=== PATIENT | male | born 1975 | race Caucasian/White ===

== ENCOUNTER 2016-04-17 10:09 | Emergency (ER) | payer OTHER ==
[2016-04-17 10:28] VITALS: BP 106/60; PULSE 88; TEMP 97.5; BMI 23.0
--- NOTE | 2016-04-17 10:57 | PDOC ---
History of Present Illness <Brett Ly - Last Filed: 04/17/16 10:55> - General History Source: Patient Exam Limitations: No Limitations - History of Present Illness Initial Comments: 04/17/16 11:00 The patient is a 40 year old male with no pmhx who presents to the ED with left lower back pain. Patient reports taking advil to alleviate the pain. He denies radiation of the pain, no testicular pain, no dysuria or hematuria. He denies any fever, nausea, or vomiting. <Rosanne Garcia - Last Filed: 04/17/16 11:01> - General Chief Complaint: Pain Stated Complaint: LOWER BACK PAIN Time Seen by Provider: 04/17/16 10:36 Past History - Past Medical History Diabetes: Yes HTN: Yes Suicide Attempt (Hx): No Other medical history: none - Surgical History Abdominal Surgery: Yes (vertical sleeve gastrectomy) - Immunization History Td Vaccination: No TDAP Vaccination: No Immunization Up to Date: Yes - Psycho/Social/Smoking Cessation Hx Anxiety: No Suicidal Ideation: No Smoking Status: No Smoking History: Never smoked Years of Tobacco Use: 0 Have you smoked in the past 12 months: No Number of Cigarettes Smoked Daily: 0 Cigars Per Day: 0 Information on smoking cessation initiated: No Hx Alcohol Use: No Drug/Substance Use Hx: No Substance Use Type: None <Brett Ly - Last Filed: 04/17/16 10:55> <Rosanne Garcia - Last Filed: 04/17/16 11:01> - Past Medical History Allergies/Adverse Reactions: Allergies Allergy/AdvReac Type Severity Reaction Status Date / Time No Known Allergies Allergy Verified 04/17/16 10:22 Home Medications: Ambulatory Orders Unobtainable [Unobtainable] 03/07/14 Review of Systems - Review of Systems Able to Perform ROS?: Yes Comments:: 04/17/16 11:01 General: Absent: fever, chills : Absent: dysuria, hematuria, testicular pain GI: Absent: nausea, vomiting Musculoskeletal: left lower back pain <Rosanne Garcia - Last Filed: 04/17/16 11:01> *Physical Exam - Vital Signs Last Vital Signs Temp Pulse Resp BP Pulse Ox 97.5 F L 88 18 106/60 100 04/17/16 10:24 04/17/16 10:24 04/17/16 10:24 04/17/16 10:24 04/17/16 10:24 - Physical Exam General Appearance: Yes: Nourished, Appropriately Dressed. No: Apparent Distress Neck: positive: Supple. negative: Tender Respiratory/Chest: positive: Lungs Clear, Normal Breath Sounds. negative: Chest Tender, Respiratory Distress Cardiovascular: positive: Regular Rhythm Gastrointestinal/Abdominal: positive: Flat, Soft. negative: Tender Musculoskeletal: positive: Normal Inspection, Other (TENDER AT LT PARASPINAL MUSCLES. NO ECCHYMOSIS. PAIN WHEN ENGAGING SAID MUSCLES). negative: CVA Tenderness Extremity: positive: Normal Capillary Refill, Normal Range of Motion Integumentary: positive: Normal Color. negative: Rash, Ecchymosis, Bruising Neurologic: positive: Fully Oriented, Normal Mood/Affect, Normal Response, Motor Strength 5/5 <Brett Ly - Last Filed: 04/17/16 10:55> - Vital Signs Last Vital Signs Temp Pulse Resp BP Pulse Ox 97.5 F L 88 18 106/60 100 04/17/16 10:24 04/17/16 10:24 04/17/16 10:24 04/17/16 10:24 04/17/16 10:24 <Rosanne Garcia - Last Filed: 04/17/16 11:01> *DC/Admit/Observation/Transfer <Brett Ly - Last Filed: 04/17/16 10:55> - Attestations Scribe Attestion: 04/17/16 11:01 Documentation prepared by NATALIE Buckley, acting as durable medical equipment repairer for Brett Ly MD/DO. <Rosanne Garcia - Last Filed: 04/17/16 11:01> Diagnosis at time of Disposition: Muscle pain - Discharge Dispostion Disposition: HOME Condition at time of disposition: Good - Referrals Referrals: Isidra Falk MD [Primary Care Provider] - Call tomorrow - Patient Instructions Additional Instructions: IBUPROFEN 800 MG 3 TIMES A DAY FOR 3 DAYS SEE YOUR DOCTOR THIS WEEK RETURN IF WORSENING OR NEW SYMPTOMS
== END 2016-04-17 11:25 | disposition home or self-care (01) ==
LOC: JER 10:09
DX: M54.5 Low back pain (principal); E11.9 Type 2 diabetes mellitus without complications; I10 Essential (primary) hypertension; Z98.84 Bariatric surgery status
CPT/HCPCS: 99282-25

== ENCOUNTER 2017-09-27 13:10 | Emergency (ER) | payer OTHER ==
[2017-09-27 13:14] VITALS: BP 114/65; PULSE 88; TEMP 98.2; BMI 24.2
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
== END 2017-09-27 14:41 | disposition home or self-care (01) ==
LOC: JERFT 13:10
DX: S63.8X2A Sprain of other part of left wrist and hand, initial encounter (principal); V43.52XA Car driver injured in collision with other type car in traffic accident, initial encounter; Y93.89 Activity, other specified; Y92.410 Unspecified street and highway as the place of occurrence of the external cause; M79.1 Myalgia; I10 Essential (primary) hypertension; E11.9 Type 2 diabetes mellitus without complications
CPT/HCPCS: 73130-TC-LR-FY; 99281-25

== ENCOUNTER 2018-08-01 04:45 | Inpatient (IN) | payer OTHER ==
[2018-08-01] MEDS ORDERED: MIDAZOLAM HCL 2 MG/2 ML SINGLE DOSE VIAL ONE (07:12)
[2018-08-01] MEDS ORDERED: SUCCINYLCHOLINE CHLORIDE 200 MG/10 ML SYRINGE ONE (07:12)
[2018-08-01] MEDS ORDERED: PROPOFOL 20 ML ONE (07:12)
[2018-08-01] MEDS ORDERED: ROCURONIUM BROMIDE 50 MG/5 ML VIAL ONE (07:12)
[2018-08-01] MEDS ORDERED: fentaNYL CITRATE 250 MCG/5 ML VIAL ONE (07:12)
[2018-08-30 18:09] VITALS: BMI 25.1
[2018-09-03] MEDS ORDERED: fentaNYL CITRATE 250 MCG/5 ML VIAL ONE (07:00)
[2018-09-03] MEDS ORDERED: ROCURONIUM BROMIDE 50 MG/5 ML SYRINGE ONE (07:00)
[2018-09-03] MEDS ORDERED: PROPOFOL 20 ML ONE (07:00)
[2018-09-03] MEDS ORDERED: ONDANSETRON 4 MG/2 ML VIAL ONE (07:01)
[2018-09-03] MEDS ORDERED: LIDOCAINE HCL/PF 2% SDV 5ML VIAL ONE (07:01)
[2018-09-03] MEDS ORDERED: DEXAMETHASONE SOD PHOSPHATE 4 MG/1 ML VIAL ONE (07:01)
[2018-09-03] MEDS ORDERED: DESFLURANE GAS 240 ML BOTTLE IH ONE (07:10)
[2018-09-03] MEDS ORDERED: THROMBIN (BOVINE) 20,000 UNIT VIAL TP ONE (07:11)
[2018-09-03] MEDS ORDERED: LIDOCAINE 1%-EPI 1:100,000 30 ML MDV IJ ONE (07:11)
[2018-09-03] MEDS ORDERED: GENTAMICIN SO4 80 MG/2 ML VIAL ONE (07:11)
[2018-09-03] MEDS ORDERED: VANCOMYCIN 1,000 MG VIAL (RESTRICTED TO ID ONLY) IVPB ONE (08:00)
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
[2018-09-03] MEDS ORDERED: MIDAZOLAM HCL 2 MG/2 ML SINGLE DOSE VIAL ONE ×2 (08:27→08:33)
[2018-09-03] MEDS ORDERED: ceFAZolin SODIUM 1 GM VIAL IVPB ONE (08:45)
[2018-09-03] MEDS ORDERED: VANCOMYCIN 1,000 MG VIAL (RESTRICTED TO ID ONLY) ONE (08:51)
[2018-09-03] MEDS ORDERED: LIDOCAINE 1%/EPI 1:100000 (50 ML MULTI DOSE VIAL) INF ONE (08:54)
[2018-09-03] MEDS ORDERED: NEOSTIGMINE METHYLSULFATE 0.5 MG/1 ML - 10 ML MDV ONE (09:54)
[2018-09-03] MEDS ORDERED: GLYCOPYRROLATE 0.2 MG/1 ML VIAL ONE (09:54)
[2018-09-03] MEDS ORDERED: ONDANSETRON 4 MG/2 ML VIAL IVPUSH PRN (10:22)
[2018-09-03] MEDS ORDERED: oxyCODONE HCL 5 MG TABLET PO PRN (10:22)
[2018-09-03] MEDS ORDERED: diphenhydrAMINE HCL 25 MG CAPSULE (FP) PO PRN (10:22)
[2018-09-03] MEDS: ACETAMINOPHEN 1000 MG/100 ML VIAL (NON FORMULARY) IVPB ONE ×2 (10:36→15:46)
[2018-09-03] MEDS ORDERED: HYDROmorphone HCl 2 MG/ML VIAL IVPUSH ONE (11:40)
[2018-09-03] MEDS: LACTATED RINGERS SOLUTION 1,000 ML/1,000 ML INFUS.BAG IV SCH ×2 (11:51→18:07)
[2018-09-03] MEDS: morphine SULFATE 4 MG/ML VIAL IVPUSH PRN ×3 (14:01→22:16)
[2018-09-03] MEDS: MECLIZINE HCL 25 MG TABLET (FP) PO SCH ×2 (14:08→21:32)
[2018-09-03] MEDS: DOCUSATE SODIUM 100 MG CAPSULE (FP) PO SCH ×2 (14:08→21:32)
[2018-09-03] MEDS: oxyCODONE HCL 5 MG TABLET PO PRN ×2 (15:51→20:11)
[2018-09-03] MEDS ORDERED: PT OWN MED DRAWER 7, Y5N ONE ×3 (17:45→18:36)
[2018-09-03] MEDS ORDERED: CEFAZOLIN 1 GM/D5W 1 GM/50 ML BAG IVPB SCH (18:00)
[2018-09-03] MEDS ORDERED: CEFAZOLIN 1 GM in DEXTROSE 5%-WATER - 50 ML IVPB SCH (18:38)
[2018-09-03] MEDS ORDERED: ceFAZolin SODIUM 1 GM VIAL ONE (20:56)
[2018-09-03] MEDS ORDERED: DEXTROSE 5%-WATER - 50 ML IVPB ONE (20:56)
[2018-09-03] MEDS: CEFAZOLIN 1 GM in DEXTROSE 5%-WATER - 50 ML IVPB SCH (21:03)
[2018-09-04] MEDS: oxyCODONE HCL 5 MG TABLET PO PRN ×3 (00:18→11:06)
[2018-09-04] MEDS: ACETAMINOPHEN 325 MG TABLET (FP) PO PRN ×4 (00:18→15:11)
[2018-09-04] MEDS ORDERED: ceFAZolin SODIUM 1 GM VIAL ONE ×2 (01:15→10:10)
[2018-09-04] MEDS ORDERED: DEXTROSE 5%-WATER - 50 ML IVPB ONE ×2 (01:15→10:10)
[2018-09-04] MEDS: CEFAZOLIN 1 GM in DEXTROSE 5%-WATER - 50 ML IVPB SCH ×2 (01:19→10:14)
[2018-09-04] MEDS: morphine SULFATE 4 MG/ML VIAL IVPUSH PRN ×2 (03:52→08:47)
[2018-09-04] MEDS: MECLIZINE HCL 25 MG TABLET (FP) PO SCH ×2 (06:52→14:32)
[2018-09-04] MEDS: DOCUSATE SODIUM 100 MG CAPSULE (FP) PO SCH ×2 (06:52→14:32)
[2018-09-04 09:08] LABS: HEMATOCRIT 36.3 % (35.4-49); HEMOGLOBIN 12.2 GM/dL (11.7-16.9); MCH 29.3 pg (25.7-33.7); MCHC 33.5 g/dl (32.0-35.9); MEAN CELL VOLUME 87.2 fl (80-96); MEAN PLT VOLUME 7.1 fl (7.5-11.1); PLATELET COUNT 290 K/MM3 (134-434); RBC 4.16 M/mm3 (4.00-5.60); RDW 15.2 % (11.9-15.9); WHITE BLOOD COUNT 8.9 K/mm3 (4.0-10.0)
--- NOTE | 2018-09-04 09:29 | DS ---
"Physical Exam: SUBJECTIVE: POD #1 C5-C6 ACDF patient seen and examined at bedside. Patient states he has some pain extending from the back of his neck through b/l Trap muscles but does not radiate into B/L UE. The right UE pain he was having pre- operatively has resolved. He denies any numbness or tingling in b/l hands and fingers. He is tolerating clears and is voiding. He denies any CP, SOB, N/V, fever or chills. OBJECTIVE: Vital Signs Period Temp Pulse Resp BP Sys/Wayne Pulse Ox Last 24 Hr 98 F-98.9 F 83-117 14-22 131-156/55-100 97-100 PHYSICAL EXAM GENERAL: The patient is awake, alert, and fully oriented, in no acute distress. HEAD: Normal with no signs of trauma. EYES: sclera anicteric, conjunctiva clear. NECK: Trachea midline, incision c/d/i surrounding tissue intact with no tracking erythema, edema or evidence of collection or d/c. j/p drain removed with tip fully intact- drain site clean and dry. LUNGS: unlabored resp on RA, no auditory wheezes, no accessory muscle use. EXTREMITIES: moving all extremities without limitation, 2+ pulses, warm, well- perfused, no edema. LE compartments soft, supple and non-tender to palpation. 5/ 5 master tax advisor strength, 5/5 deltoid, 5/5 biceps and resisted wrist extension bilaterally. 5/5 dorsi/plantar flexion NEUROLOGICAL: Cranial nerves II through XII grossly intact. Normal speech, gait not observed. PSYCH: Normal mood, normal affect. SKIN: Warm, dry, normal turgor, no rashes or lesions noted. LABS : CBC, BMP 07/17/19 08:35 07/17/19 08:35 HOSPITAL COURSE: Date of Admission:16/ The patient was admitted to the Med-Surg Unit after an elective repair of their cervical stenosis. Now, s/p C5-C6 ACDF The day of surgery, the patient stood at the bedside. Narcotic and non-narcotic pain management control was achieved with an oral and IV approach. POD #1, the surgical drain was removed fully intact and without incident. An intraop xray was obtained and confirmed hardware placement at C5-C6, no fractures or dislocations. Jeanette-operative IV ABX were administered. DVT prophylaxis was achieved with SCDs , SQ heparin and early ambulation. The patient ambulated with Physical Therapy and no services were recommended upon discharge. Narcotic scripts and or muscle relaxants were checked with [facility] SEARCH AND RESCUE OFFICER prior to escibe. The discharge instructions and an oral pain management plan were reviewed with the patient. All questions answered. Above plan discussed with Dr. Zarate and agreed. Date of Discharge: 09/04/18 Minutes to complete discharge: 25 Discharge Summary Reason For Visit: CERVICAL SPONDYLOSIS Current Active Problems Anxiety (Acute) Cervicalgia (Acute) Vertigo (Acute) Condition: Stable - Instructions Diet, Activity, Other Instructions: Post Operative Instructions Physical Activity Resume your normal everyday activity as tolerated. No heavy lifting or exercise until seen by your surgeon. You may walk unlimited amounts and climb stairs. You may resume driving the car when you feel safe and comfortable behind the wheel and you are no longer wearing your brace. Do not operate a vehicle while taking narcotic medication. Brace If you had neck surgery, wear surgical collar 23 hr/day. Remove to shower only. Wound Care Keep your incision clean, dry and covered at all times. Apply an occlusive dressing (Saran wrap or Tegaderm) when showering to avoid getting your incision wet. Do not submerge incision or apply ointments or creams. The nanette will be removed in the office in 10-14 days post-op. Diet There are no dietary restrictions. Eat healthy, high-fiber foods. Drink 6-8 glasses of liquid each day. This will assist in keeping your bowels regular. Pain Management You may take Tylenol or acetaminophen. Any pain prescription medication ordered should be taken as prescribed for moderate to severe pain. Avoid any ibuprofen (Motrin, Advil, Aleve, Toradol, etc) for 3 months unless otherwise discussed with your surgeon. Call Dr Pete for any of the following: Severe pain not relieved by medication Fever of 101 or higher Excessive bleeding or drainage on dressing Inability to urinate Any chest pain or shortness of breath, seek Emergency Care. Call the office to confirm a post-operative appointment for 2-3 weeks post-op Sandro Zarate MD [facility] [place] [address] [facility] SEARCH AND RESCUE OFFICER Checked prior too escribe of narcotics for pain management. This report was requested by: Adryan Blackwell | Reference #: [id number] Disposition: HOME - Home Medications Comprehensive Discharge Medication List: Ambulatory Orders Acetaminophen [Tylenol] 650 mg PO PRN PRN 06/17/18 Meclizine HCl [Antivert -] 25 mg PO TID #21 tablet 08/13/18 Oxycodone HCl/Acetaminophen [Percocet 5-325 mg Tablet] 1 - 2 tab PO Q4H PRN #30 tablet MDD 6 09/04/18 Problem List - Problems (1) Cervical spinal stenosis Assessment/Plan: POD #1 ACDF patient doing well. 1) OOB with PT 2) C-collar 23hrs/day 3) Keep incision clean and dry 4) d/c planning for home today pending PT evaluation. Evaluation and plan discussed with Dr Zarate Code(s): M48.02 - SPINAL STENOSIS, CERVICAL REGION This patient is new to me today: Yes Date on this admission: 09/04/18 Emergency Visit: No Critical Care patient: No - Discharge Referral Referred to [facility] No"
[2018-09-04 09:34] LABS: CALCIUM 8.7 mg/dL (8.5-10.1); CREATININE 0.7 mg/dL (0.55-1.3); POTASSIUM 3.8 mmol/L (3.5-5.1)
[2018-09-04] MEDS ORDERED: FOLIC ACID 1 MG TABLET (FP) PO SCH (10:00)
[2018-09-04 14:35] VITALS: BP 145/77; PULSE 108; TEMP 98.7
== END 2018-09-04 15:53 | disposition home or self-care (01) | DRG 321 ==
LOC: JSAMEDAYSX 04:45 → UNDOADMIN 04:45 → JSAMEDAYSX 09-03 06:53 → J8W 09-03 13:47
PROVIDERS: ADMIT Neurological Surgery; ATTEND Neurological Surgery
PROC: 0RB30ZZ Excision of Cervical Vertebral Disc, Open Approach (ICD-10-PCS; 2018-09-03)
PROC: 00NW0ZZ Release Cervical Spinal Cord, Open Approach (ICD-10-PCS; 2018-09-03)
PROC: B01BZZZ Fluoroscopy of Spinal Cord (ICD-10-PCS; 2018-09-03)
PROC: 0RG10A0 Fusion of Cervical Vertebral Joint with Interbody Fusion Device, Anterior Approach, Anterior Column, Open Approach (ICD-10-PCS; principal; 2018-09-03 08:00)
DX: M48.02 Spinal stenosis, cervical region (principal); F41.9 Anxiety disorder, unspecified; R42 Dizziness and giddiness; M54.2 Cervicalgia; M47.812 Spondylosis without myelopathy or radiculopathy, cervical region
CPT/HCPCS: 36415; 72125-TC; 76000-TC-FY; 80048; 85027; 86850; 86900; 86901; 94760; 97116-GP; 97161-GP; J0131

== ENCOUNTER 2018-08-13 14:16 | Emergency (ER) | payer OTHER | END 2018-08-13 18:20 | disposition home or self-care (01) | LOC: JER 14:16 ==

== ENCOUNTER 2019-03-04 16:58 | Emergency (ER) | payer OTHER ==
[2019-03-04 17:19] VITALS: BP 164/95; TEMP 98.9; BMI 27.2
[2019-03-04] MEDS ORDERED: ONDANSETRON *ODT* 4 MG TABLET SL ONE (17:20)
--- NOTE | 2019-03-04 17:20 | PDOC ---
Rapid Medical Evaluation Chief Complaint: Cold Symptoms Time Seen by Provider: 03/04/19 17:17 Medical Evaluation: Allergies Allergy/AdvReac Type Severity Reaction Status Date / Time pollen extracts Allergy Verified 03/04/19 17:07 03/04/19 17:17 Pt c/o: vomiting diarrhea, cough, chills Pt on brief exam: vss, no abd distention Pt ordered for: zofran odt Pt to proceed to the ED 03/04/19 17:19 Discharge Disposition - Diagnosis Viral syndrome, Elevated LFTs - Discharge Dispostion Disposition: HOME Condition at time of disposition: Improved - Prescriptions Prescriptions: Acetaminophen [Tylenol -] 1,000 mg PO Q6H #30 tablet Ondansetron HCl [Zofran] 4 mg PO Q8H #12 tablet - Referrals Referrals: Isidra Falk MD [Primary Care Provider] - - Patient Instructions Printed Discharge Instructions: DI for Viral Syndrome Additional Instructions: Rest, drink plenty of fluids and take medication as directed If symptoms worsen please return to ER Your liver tests were elevated, most likely due to your drinking. Please seek help to cope to prevent further medical complications - Post Discharge Activity Work/School Note: Back to Work
[2019-03-04] MEDS ORDERED: ONDANSETRON 4 MG TABLET PO ONE (17:39)
[2019-03-04] MEDS ORDERED: SODIUM CHLORIDE 1,000 ML IV STA (17:52)
[2019-03-04] MEDS ORDERED: ACETAMINOPHEN 1000 MG/100 ML VIAL (NON FORMULARY) IVPB ONE (17:52)
--- NOTE | 2019-03-04 17:56 | PDOC ---
History of Present Illness - General Chief Complaint: Cold Symptoms Stated Complaint: Cold Symptoms Time Seen by Provider: 03/04/19 17:17 History Source: Patient - History of Present Illness Timing/Duration: reports: yesterday Associated Symptoms: reports: cough Past History - Past Medical History Allergies/Adverse Reactions: Allergies Allergy/AdvReac Type Severity Reaction Status Date / Time pollen extracts Allergy Verified 03/04/19 17:07 Home Medications: Ambulatory Orders Acetaminophen [Tylenol] 650 mg PO PRN PRN 06/17/18 Meclizine HCl [Antivert -] 25 mg PO TID #21 tablet 08/13/18 Oxycodone HCl/Acetaminophen [Percocet 5-325 mg Tablet] 1 - 2 tab PO Q4H PRN #30 tablet MDD 6 09/04/18 Acetaminophen [Tylenol -] 1,000 mg PO Q6H #30 tablet 03/04/19 Ondansetron HCl [Zofran] 4 mg PO Q8H #12 tablet 03/04/19 Anemia: No Asthma: No Cancer: No Cardiac Disorders: No CVA: No COPD: No CHF: No Dementia: No Diabetes: No GI Disorders: No Disorders: No HTN: Yes (past hx, no medication) Hypercholesterolemia: No Liver Disease: No Seizures: No Thyroid Disease: No - Surgical History Abdominal Surgery: Yes (gastric sleeve~ 2014) Appendectomy: No Cardiac Surgery: No Cholecystectomy: No Lung Surgery: No Neurologic Surgery: No Orthopedic Surgery: No - Immunization History Td Vaccination: No TDAP Vaccination: No Immunization Up to Date: Yes - Psycho Social/Smoking Cessation Hx Smoking Status: No Smoking History: Never smoked Years of Tobacco Use: 0 Have you smoked in the past 12 months: No Number of Cigarettes Smoked Daily: 0 If you are a former smoker, when did you quit?: 25 YEARS AGO Cigars Per Day: 0 Information on smoking cessation initiated: No Hx Alcohol Use: No Drug/Substance Use Hx: No Substance Use Type: None Hx Substance Use Treatment: No Review of Systems - Review of Systems Constitutional: Yes: Malaise. No: Chills, Fever HEENTM: No: Ear Pain, Throat Pain Respiratory: Yes: Cough. No: Shortness of Breath Cardiac (ROS): No: Chest Pain ABD/GI: Yes: Diarrhea, Nausea, Vomiting. No: Abdominal cramping *Physical Exam - Vital Signs Last Vital Signs Temp Pulse Resp BP Pulse Ox 98.9 F 117 H 118 H 164/95 99 03/04/19 17:15 03/04/19 17:15 03/04/19 17:15 03/04/19 17:15 03/04/19 17:15 - Physical Exam 03/04/19 17:56 sienna ill General Appearance: Yes: Appropriately Dressed HEENT: positive: Normal ENT Inspection, Normal Voice. negative: Scleral Icterus (R), Scleral Icterus (L) Neck: positive: Supple Respiratory/Chest: positive: Lungs Clear, Normal Breath Sounds. negative: Respiratory Distress Cardiovascular: positive: S1, S2, Tachycardia Gastrointestinal/Abdominal: positive: Soft. negative: Tender Integumentary: positive: Dry, Warm Neurologic: positive: Fully Oriented, Alert, Normal Mood/Affect ED Treatment Course - LABORATORY CBC & Chemistry Diagram: 03/04/19 18:11 03/04/19 18:11 - Medications Given in the ED: ED Medications Discontinued Medications Generic Name Dose Route Start Last Admin Trade Name Rolando PRN Reason Stop Dose Admin Ondansetron HCl 4 mg 03/04/19 17:20 03/04/19 17:40 Zofran Odt - SL 03/04/19 17:21 4 mg ONCE ONE Administration Medical Decision Making - Medical Decision Making 03/04/19 17:53 43-year-old male, no significant history, here with malaise, body aches, headache, diarrhea and cough that started suddenly last night. No fever, chills or abd pain. No recent travel or sick contacts. Has been able to tolerate Gatorade today. Not taking any meds see exam Viral syndrome, r/o flu Tachy to 117 and lethargic sienna -IVF -zofran -poain meds -check electrolytes -reasses 03/04/19 20:17 Labs remarkable for elevated LFTs. Patient informed of results and now states that he has a long standing history of alcohol abuse and is currently planning on arranging inpatient rehab. Repeat vitals improved. Will dc with supportive treatment for most likely viral syndrome. Flu negative Discharge - Discharge Information Problems reviewed: Yes Clinical Impression/Diagnosis: Viral syndrome, Elevated LFTs Condition: Improved Disposition: HOME - Additional Discharge Information Prescriptions: Acetaminophen [Tylenol -] 1,000 mg PO Q6H #30 tablet Ondansetron HCl [Zofran] 4 mg PO Q8H #12 tablet - Follow up/Referral Referrals: Isidra Falk MD [Primary Care Provider] - - Patient Discharge Instructions Patient Printed Discharge Instructions: DI for Viral Syndrome Additional Instructions: Rest, drink plenty of fluids and take medication as directed If symptoms worsen please return to ER Your liver tests were elevated, most likely due to your drinking. Please seek help to cope to prevent further medical complications - Post Discharge Activity Work/Back to School Note: Back to Work
[2019-03-04] MEDS ORDERED: ACETAMINOPHEN INJECTION 100 ML IVPB ONE (18:02)
[2019-03-04 19:22] LABS: BASO % 1.9 % (0-2.0); EOS % 0.1 % (0-4.5); HEMATOCRIT 40.5 % (35.4-49); HEMOGLOBIN 13.8 GM/dL (11.7-16.9); LYMPH % 10.9 % (8-40); MCH 30.4 pg (25.7-33.7); MCHC 34.1 g/dl (32.0-35.9); MEAN CELL VOLUME 89.2 fl (80-96); MEAN PLT VOLUME 7.6 fl (7.5-11.1); MONO % 11.8 % (3.8-10.2); NEUT % 75.3 % (42.8-82.8); PLATELET COUNT 345 K/MM3 (134-434); RBC 4.55 M/mm3 (4.00-5.60); RDW 14.5 % (11.9-15.9); WHITE BLOOD COUNT 5.5 K/mm3 (4.0-10.0)
[2019-03-04 20:00] LABS: ALBUMIN 3.6 g/dl (3.4-5.0); BILIRUBIN,TOTAL 0.5 mg/dL (0.2-1); BLOOD UREA NITROGEN 14.3 mg/dL (7-18); CALCIUM 8.7 mg/dL (8.5-10.1); CREATININE 1.1 mg/dL (0.55-1.3); POTASSIUM 3.8 mmol/L (3.5-5.1); TOT PROT 7.6 g/dl (6.4-8.2)
[2019-03-04 20:12] VITALS: PULSE 99
== END 2019-03-04 20:17 | disposition home or self-care (01) ==
LOC: JERFT 16:58
PROC: 3E033NZ Introduction of Analgesics, Hypnotics, Sedatives into Peripheral Vein, Percutaneous Approach (ICD-10-PCS; principal; 2019-03-04)
DX: B34.9 Viral infection, unspecified (principal); R94.5 Abnormal results of liver function studies
CPT/HCPCS: 36415; 80053; 85025; 87389; 87804; 96374; 99282-25; J0131; J7030; Q0162

== ENCOUNTER 2019-03-29 12:55 | Inpatient (IN) | payer OTHER ==
[2019-03-29] MEDS ORDERED: ACETAMINOPHEN 1000 MG/100 ML VIAL (NON FORMULARY) IVPB ONE ×2 (13:27→14:31)
[2019-03-29] MEDS ORDERED: SODIUM CHLORIDE 0.9% 500 ML INFUS.BAG IV ONE (13:27)
--- NOTE | 2019-03-29 13:47 | PDOC ---
History of Present Illness - General Chief Complaint: Pain, Acute Stated Complaint: ABD PAIN Time Seen by Provider: 03/29/19 13:25 - History of Present Illness Initial Comments: 03/29/19 13:40 Pt is a 43y/o male with PMH of gastric sleeve (2014) and anxiety who presents with 2 days of increasing upper abdominal pain. It is squeezing in nature, mainly epigastric, and radiates up into the chest. He also reports nausea, vomiting, and loss of appetite. He has had poor PO intake and has been retching. He reports taking Pepto-bismol with no real relief. Two days prior he had diarrhea which resolved. He was in the ED about a month ago with GI symptoms and myalgias with transaminitis. He reports drinking 1/2 bottle red wine 2 times a week with last drink 2 days ago. Pt reports brushing his teeth this morning and spit up "something red" but is unsure if it was blood and if it was from brushing his teeth vs from stomach. CIWA 12 Past History - Past Medical History Allergies/Adverse Reactions: Allergies Allergy/AdvReac Type Severity Reaction Status Date / Time pollen extracts Allergy Verified 03/29/19 13:10 Home Medications: Ambulatory Orders NK [No Known Home Medication] 03/29/19 Anemia: No Asthma: No Cancer: No Cardiac Disorders: No CVA: No COPD: No CHF: No Dementia: No Diabetes: No GI Disorders: No Disorders: No HTN: Yes (past hx, no medication) Hypercholesterolemia: No Liver Disease: No Seizures: No Thyroid Disease: No - Surgical History Abdominal Surgery: Yes (gastric sleeve~ 2014) Appendectomy: No Cardiac Surgery: No Cholecystectomy: No Lung Surgery: No Neurologic Surgery: No Orthopedic Surgery: No - Immunization History Td Vaccination: No TDAP Vaccination: No Immunization Up to Date: Yes - Psycho Social/Smoking Cessation Hx Smoking Status: No Smoking History: Never smoked Years of Tobacco Use: 0 Have you smoked in the past 12 months: No Number of Cigarettes Smoked Daily: 0 If you are a former smoker, when did you quit?: 25 YEARS AGO Cigars Per Day: 0 Hx Alcohol Use: Yes (3-4 times / wk) Drug/Substance Use Hx: No Substance Use Type: None Hx Substance Use Treatment: No Review of Systems - Review of Systems Constitutional: No: Chills, Fever *Physical Exam - Vital Signs Last Vital Signs Temp Pulse Resp BP Pulse Ox 98.5 F 106 H 18 137/102 H 99 03/29/19 13:10 03/29/19 13:10 03/29/19 13:10 03/29/19 13:10 03/29/19 13:10 - Physical Exam General Appearance: Yes: Nourished, Appropriately Dressed, Mild Distress HEENT: positive: EOMI, PANFILO, Other (mild tongue fasiculations) Neck: positive: Trachea midline Respiratory/Chest: positive: Lungs Clear Cardiovascular: positive: Regular Rhythm, Tachycardia. negative: Murmur Gastrointestinal/Abdominal: positive: Normal Bowel Sounds, Tender (epigastric, RUQ, LUQ, worst epigastric) Neurologic: positive: Fully Oriented, Alert, Normal Mood/Affect ED Treatment Course - LABORATORY CBC & Chemistry Diagram: 03/29/19 14:00 03/29/19 14:00 Medical Decision Making - Medical Decision Making 03/29/19 15:10 Pt is a 43y/o male with PMH of gastric sleeve (2014) and anxiety who presents with 2 days of increasing upper abdominal pain. It is squeezing in nature and radiates up into the chest. He also reports nausea, vomiting, and loss of appetite. He reports taking Pepto-bismol with no real relief. Two days prior he had diarrhea which resolved. He was in the ED about a month ago with GI symptoms and myalgias with transaminitis. He reports drinking 1/2 bottle red wine 2 times a week with last drink 2 days ago. ddx: alcohol withdrawal, gastritis, hepatitis, cholelithiasis/cholecystitis orders: CT abdomen with PO contrast, CBC, CMP, PT/PTT, EKG, 1L NS, morphine 2mg , Ofirmev 1g 03/29/19 15:48 Pt reports improvement in pain, slight improvement in HR 120-->113, no longer tachypneic Mg 1.4, K 5.6 AST and ALT elevated but slightly lower than a month ago, tbili is 2.2 but was 0.5 a month ago CBC unremarkable, stable Hb 2g magnesium Ativan 1mg x1 famotidine 20mg 2 more liters NS CXR no acute pathology EKG @13:34 sinus tachycardia HR 132, QTc 414 03/29/19 18:23 CT abdomen shows no extravasation of contrast from stomach, no pancreatitis, no diverticulitis, no cholelithiasis Pt still reports feeling anxious. Will admit for alcohol withdrawal given CIWA of 12 as well as monitoring of abdominal pain. BP and HR improved Tolerated sandwich and water Discharge - Discharge Information Problems reviewed: Yes Clinical Impression/Diagnosis: Alcohol withdrawal Qualifiers: Complication of substance-induced condition: uncomplicated Qualified Code(s): F10.230 - Alcohol dependence with withdrawal, uncomplicated Abdominal pain Qualifiers: Abdominal location: upper abdomen, unspecified Qualified Code(s): R10.10 - Upper abdominal pain, unspecified - Follow up/Referral - Patient Discharge Instructions - Post Discharge Activity
[2019-03-29] MEDS ORDERED: morphine CARPU-JECT 4 MG/1 ML DISP.SYRIN IVPUSH ONE ×2 (13:49→14:31)
[2019-03-29] MEDS ORDERED: MORPHINE SULFATE 2 MG/ML VIAL ONE (13:55)
[2019-03-29] MEDS ORDERED: ACETAMINOPHEN INJECTION 100 ML IVPB ONE (13:55)
--- NOTE | 2019-03-29 14:34 | EKG ---
Test Reason : Blood Pressure : / mmHG Vent. Rate : 132 BPM Atrial Rate : 132 BPM P-R Int : 138 ms QRS Dur : 082 ms QT Int : 280 ms P-R-T Axes : 065 071 033 degrees QTc Int : 414 ms SINUS TACHYCARDIA OTHERWISE NORMAL ECG Confirmed by MD BRADY, SOHEILA ([id number]) on 03/29/2019 2:33:31 PM Referred By: Confirmed By:SOHEILA ABREU MD
[2019-03-29 14:50] LABS: BASO % 0.8 % (0-2.0); EOS % 0.2 % (0-4.5); HEMATOCRIT 46.5 % (35.4-49); HEMOGLOBIN 15.9 GM/dL (11.7-16.9); LYMPH % 13.6 % (8-40); MCH 30.3 pg (25.7-33.7); MCHC 34.2 g/dl (32.0-35.9); MEAN CELL VOLUME 88.8 fl (80-96); MEAN PLT VOLUME 7.9 fl (7.5-11.1); MONO % 7.1 % (3.8-10.2); NEUT % 78.3 % (42.8-82.8); PLATELET COUNT 360 K/MM3 (134-434); RBC 5.23 M/mm3 (4.00-5.60); RDW 14.2 % (11.9-15.9); WHITE BLOOD COUNT 6.6 K/mm3 (4.0-10.0)
[2019-03-29] MEDS ORDERED: MAGNESIUM SULF 50% (8.12 MEQ/2 ML-1 GM VIAL) IVPB ONE (15:03)
[2019-03-29] MEDS ORDERED: FAMOTIDINE 20 MG/50 ML IVPB 20 MG/50 ML MG IVPB ONE ×2 (15:04→16:24)
[2019-03-29] MEDS ORDERED: THIAMINE HCL 200 MG/2 ML VIAL IVPB ONE (15:04)
[2019-03-29] MEDS ORDERED: SODIUM CHLORIDE 1,000 ML IV STA ×2 (15:04→15:15)
[2019-03-29 15:11] LABS: BILIRUBIN,TOTAL 2.2 mg/dL (0.2-1); BLOOD UREA NITROGEN 15.5 mg/dL (7-18); CALCIUM 9.3 mg/dL (8.5-10.1); POTASSIUM 5.6 mmol/L (3.5-5.1); TOT PROT 8.2 g/dl (6.4-8.2)
[2019-03-29 15:14] LABS: INR 1.01 (0.83-1.09); PROTHROMBIN TIME (PATIENT) 11.9 SEC (9.7-13.0)
[2019-03-29] MEDS ORDERED: LORazepam 2 MG/ML SDV VIAL ONE (16:23)
--- NOTE | 2019-03-29 16:24 | PDOC ---
Documentation entered by Patrick Cook SCRIBE, acting as scribe for Santhosh Avitia MD. Santhosh Avitia MD: This documentation has been prepared by the Joey joseph Daniel, SCRIBE, under my direction and personally reviewed by me in its entirety. I confirm that the documentation accurately reflects all work, treatment, procedures, and medical decision making performed by me. Attending Attestation - Resident Resident Name: SammielayRosa - ED Attending Attestation I have performed the following: I have examined & evaluated the patient, The case was reviewed & discussed with the resident, I agree w/resident's findings & plan, Exceptions are as noted - HPI HPI: 03/29/19 13:45 Patient is a 43 year old male with past medical history of gastric sleeve (4 years ago), presents with worsening epigastric pain, that started a few days ago , is squeezing in nature, radiates up, and is associated with nausea. - Physicial Exam PE: 03/29/19 16:22 Patient is awake and alert, well-nourished, tremulous, anxious appearing Normocephalic and atraumatic PERRLA, EOMI, no scleral icterus mm-dry cta rrr tachycardic, Abdomen soft, nondistended, minimal epigastric and left upper quadrant tenderness to deep palpation, no guarding or rebound Tremulous, no focal neurological deficits - Medical Decision Making 03/29/19 16:23 Patient is a 43-year-old male with history of alcohol abuse, anxiety, status post gastric sleeve 2018 presents with epigastric pain, nausea, hypertension and tremulousness. In the ER, patient is noted to be hypertensive and tremulous with minimal epigastric and left upper quadrant tenderness on deep palpation. I suspect gastritis versus pancreatitis versus SBO in association with alcohol withdrawal. Will control pain with H2 blockers. Will resuscitate with IV fluids. Will administer thiamine. Will consider benzodiazepines for alcohol withdrawal. Will obtain CT of abdomen pelvis with p.o. and IV contrast. Will reassess. Likely admission.
[2019-03-29] MEDS ORDERED: THIAMINE HCL 200 MG/2 ML VIAL ONE (18:17)
--- NOTE | 2019-03-29 19:44 | PN ---
Teaching Attending Note Name of Resident: Eric Celaya ATTENDING PHYSICIAN STATEMENT I saw and evaluated the patient. I reviewed the resident's note and discussed the case with the resident. I agree with the resident's findings and plan as documented. SUBJECTIVE: 43-year-old male with history of alcohol abuse, anxiety, status post gastric sleeve 2018 presents with epigastric pain for about 2 days, reports drinking about 2 bottles of OBJECTIVE: Last Vital Signs Temp Pulse Resp BP Pulse Ox 98.0 F 85 18 136/99 99 03/29/19 18:19 03/29/19 18:19 03/29/19 13:10 03/29/19 18:19 03/29/19 18:19 GENERAL: Well developed, well nourished. Awake and alert.Nontoxic appearing, HEENT: Normocephalic, atraumatic. PERRLA, EOMI. No conjunctival pallor. Sclera are non- icteric. Moist mucous membranes. Oropharynx is clear. NECK: Supple. Full ROM. No JVD. Carotid pulses 2+ and symmetric, without bruits. No thyromegaly. No lymphadenopathy. CARDIOVASCULAR: Regular rate and rhythm. No murmurs, rubs, or gallops. Distal pulses are 2+ and symmetric. PULMONARY: No evidence of respiratory distress. Lungs clear to auscultation bilaterally. No wheezing, rales or rhonchi. ABDOMINAL: Soft. Non-tender. Non-distended. No rebound or guarding. Epigastric tenderness to palpation, negative Bowman sign MUSCULOSKELETAL Normal range of motion at all joints. No bony deformities or tenderness. No CVA tenderness. EXTREMITIES: No cyanosis. No clubbing. No edema. No calf tenderness. SKIN: Warm and dry. Normal capillary refill. No rashes. No jaundice. PSYCHIATRIC: Cooperative. Good eye contact. Appropriate mood and affect. Abnormal Lab Results 03/29/19 03/29/19 14:00 14:00 Sodium 132 L Potassium 5.6 H Magnesium 1.4 L Total Bilirubin 2.2 H AST 341 H ALT 178 H Imaging studies reviewed CT of abdomen and pelvis with contrastno free air or free fluid and no signs of bowel obstruction or hernia. Normal appendix with no signs of colitis or diverticulitis. No signs of oral contrast extravasation with normal postoperative appearance of stomach, no infiltration of the perigastric fat with no pancreatitis. ASSESSMENT AND PLAN: 43-year-old male Complaining of epigastric pain for about 2 days, suspect possible dyspepsia/GERD. Should rule out underlying peptic ulcer disease, gastritis in light of recent binge drinking. Uncertain if drinks enough to withdrawal as he states he only drinks about 2 bottles of wine per week. Transaminitis, hypomagnesemia suggest possible larger EtOH ingestions than stated.Should rule out underlying biliary colic, choledocholithiasis. Patient also consider possible gastric sleeve complications. Admit to [facility] protocol Lorazepam IV as needed if signs of withdrawal Liver sonogram Avoid hepatotoxins Send viral hepatitis panel Send Tylenol level Supplement magnesium Advised to abstain from alcohol Supplement electrolytes including magnesium, check phosphate level IV fluid hydration Protonix 40 mg p.o. daily GI referral as an outpatient for EGD DVT prophylaxisheparin subcutaneously
--- NOTE | 2019-03-29 21:22 | HP ---
CHIEF COMPLAINT: abd pain w/ nausea, retching PCP: none HISTORY OF PRESENT ILLNESS: 43M w/ PMH of laparascopic sleeve gastrectomy([facility] 2014), HTN(resolved after sleeve), HLD(resolved after sleeve), Anterior Cervical Discectomy-Fusion C5-C6( [facility], Feb 2018), undiagnosed anxiety presenting to [facility] with complaint of severe epigastric pain radiating up to chest w/a nausea and retching x2d. Also has associated weakness, poor appetite for 2d. Pain improved prior to my interview. Has started a habit of drinking 2-3x/weekly for past 3months. Drinks 1/2 bottle wine with cheeses. Drank 1 bottle wine 2d prior to presentation. Denies h/o seizures, withdrawals. Endorses anxiety, being bothered by strong light, seeing white dots at visual periphery. Denies fever, chills, new foods, regular NSAID usage, recent travel, sick contacts. Has not seen a GI doctor. Had an EGD as a pre-op w/u prior to sleeve gastrectomy. Never had colonoscopy. 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 ER course was notable for: (1) tachy 120s (2) NS x3L (3) pepcid (4) ofirmev, morphine 2mg (5) Ativan 1mg (6) thiamine, MgSO4 x1 (7) CT A/P neg for path Recent Travel: denies PAST MEDICAL HISTORY: as stated above PAST SURGICAL HISTORY: Sleeve Gastrecomy([facility] 2014) ACDF([id number]) pediatric jaw "wiring" Social History: Smoking: teenage smoking Alcohol: 1/2 bottle wine, 2-3x weekly; 3mo Drugs: teenage MJ Allergies pollen extracts Allergy (Verified 03/29/19 13:10) HOME MEDICATIONS: Home Medications Medication Instructions Recorded NK [No Known Home Medication] 03/29/19 REVIEW OF SYSTEMS CONSTITUTIONAL: generalized weakness Absent: fever, chills, diaphoresis, generalized weakness, malaise, loss of appetite, weight change HEENT: hoarse voice, peripheral vision with white dots Absent: rhinorrhea, nasal congestion, throat swelling, difficulty swallowing, mouth swelling, ear pain, eye pain, visual changes CARDIOVASCULAR: Absent: chest pain, syncope, palpitations, irregular heart rate, lightheadedness , peripheral edema RESPIRATORY: Absent: cough, shortness of breath, dyspnea with exertion, orthopnea, wheezing, stridor, hemoptysis GASTROINTESTINAL: abdominal pain, nausea Absent: , abdominal distension, vomiting, diarrhea, constipation, melena, hematochezia GENITOURINARY: Absent: dysuria, frequency, urgency, hesitancy, hematuria, flank pain, genital pain MUSCULOSKELETAL: Absent: myalgia, arthralgia, joint swelling, back pain, neck pain SKIN: Absent: rash, itching, pallor HEMATOLOGIC/IMMUNOLOGIC: Absent: easy bleeding, easy bruising, lymphadenopathy, frequent infections NEUROLOGIC: Absent: headache, focal weakness or paresthesias, dizziness, unsteady gait, seizure, mental status changes, bladder or bowel incontinence PSYCHIATRIC: anxious Absent: depression, auditory hallucinations, tactile hallucinations PHYSICAL EXAMINATION Vital Signs - 24 hr 03/29/19 03/29/19 13:10 18:19 Temperature 98.5 F 98.0 F Pulse Rate 106 H Pulse Rate [ 85 Right Radial] Respiratory 18 Rate Blood Pressure 137/102 H Blood Pressure 136/99 [Left Arm] O2 Sat by Pulse 99 99 Oximetry (%) GENERAL: Awake, alert, and fully oriented, in no acute distress. HEAD: NC/AT, no temporal wasting EYES: extraocular movements intact, sclera anicteric, conjunctiva clear and w/o pallor. No lid lag. EARS, NOSE, THROAT: Ears normal, nares patent, oropharynx clear without exudates. Moist mucous membranes. No tongue fasciulations. No sublinguinal icterus NECK: Right-side of neck with well-healed transverse surgical scar. Normal range of motion, supple without lymphadenopathy, JVD, or masses. LUNGS: Breath sounds equal, clear to auscultation bilaterally. No wheezes, and no crackles. No accessory muscle use. HEART: Regular rate and rhythm, normal S1 and S2 without murmur, rub or gallop. ABDOMEN: Soft, mild TTP of Left hemiabdomen, not distended, normoactive bowel sounds, no guarding, no rebound, no masses. Well-healed laparascopic scars. No ascites noted MUSCULOSKELETAL: Normal range of motion at all joints. No bony deformities or tenderness. No CVA tenderness. UPPER EXTREMITIES: 2+ pulses, warm, well-perfused. No cyanosis. No clubbing. No peripheral edema. LOWER EXTREMITIES: 2+ pulses, warm, well-perfused. No calf tenderness. No peripheral edema. NEUROLOGICAL: Normal speech. 5/5 flexible babysitter strength. Mild tremors with outstretched hands PSYCHIATRIC: Cooperative. Good eye contact. Appropriate mood and affect. Anxious CIWA 11 SKIN: Warm, dry, normal turgor, no rashes or lesions noted, normal capillary refill. Laboratory Results - last 24 hr 03/29/19 03/29/19 03/29/19 14:00 14:00 14:00 WBC 6.6 RBC 5.23 Hgb 15.9 Hct 46.5 MCV 88.8 MCH 30.3 MCHC 34.2 RDW 14.2 Plt Count 360 MPV 7.9 Absolute Neuts (auto) 5.2 Neutrophils % 78.3 Lymphocytes % 13.6 D Monocytes % 7.1 Eosinophils % 0.2 D Basophils % 0.8 Nucleated RBC % 0 PT with INR INR PTT (Actin FS) Sodium 132 L Potassium 5.6 H Chloride 98 Carbon Dioxide 23 Anion Gap 11 BUN 15.5 Creatinine 1.0 Est GFR (CKD-EPI)AfAm 107.87 Est GFR (CKD-EPI)NonAf 93.07 Random Glucose 100 Calcium 9.3 Magnesium Total Bilirubin 2.2 H AST 341 H ALT 178 H Alkaline Phosphatase 101 Total Protein 8.2 Albumin 4.0 Lipase 292 Influenza A (Rapid) Negative Influenza B (Rapid) Negative Blood Type Antibody Screen 03/29/19 03/29/19 03/29/19 14:00 14:00 14:00 WBC RBC Hgb Hct MCV MCH MCHC RDW Plt Count MPV Absolute Neuts (auto) Neutrophils % Lymphocytes % Monocytes % Eosinophils % Basophils % Nucleated RBC % PT with INR 11.90 INR 1.01 PTT (Actin FS) 27.0 Sodium Potassium Chloride Carbon Dioxide Anion Gap BUN Creatinine Est GFR (CKD-EPI)AfAm Est GFR (CKD-EPI)NonAf Random Glucose Calcium Magnesium 1.4 L Total Bilirubin AST ALT Alkaline Phosphatase Total Protein Albumin Lipase Influenza A (Rapid) Influenza B (Rapid) Blood Type A POSITIVE Antibody Screen Negative ASSESSMENT/PLAN: 43M w/ PMH of laparascopic sleeve gastrectomy([facility] 2014), HTN(resolved after sleeve), HLD(resolved after sleeve), Anterior Cervical Discectomy-Fusion C5-C6( [facility], Feb 2018), undiagnosed anxiety presenting with epigastric pain and signs of possible EtOH withdrawal. Admitted for possible EtOH-induced gastritis , possible EtOH withdrawal. # epigastric pain -- possibley EtOH-induced gastritis vs GERD; unlikely ACS > CT A/P(03/29/19): neg pathology > Lipase 292 > Troponin: neg x1 > Flu neg - s/p pepcid, NSx3L - pantoprazole 40mg - EGD --probably can be done as outpt # transaminitis --possibly fatty liver vs other > CT A/P: no notable cirrhosis vs hepatomegaly > AST/ALT: 341/178 > US RUQ --pending > Hep panel --pending > serum acetaminophen level --pending # chronic EtOH usage --possible withdrawal > UDS --pending > GRIFFIN --pending - sp Ativan x1mg in ED - Ativan 1mg PO, q4h PRN for withdrawal symptoms # tachycardia --possibly 2/2 anxiety vs pain vs EtOH withdrawal ---improved after NS x3L and Ativan > EKG: Sinus Tachy, QTc 414 - ativan PRN for withdrawal # hyperkalemia > K 5.6 - repeat BMP FEN - regular diet(small bites for bariatric) DVT PPX - enoxoparin DISPO - MedSurg - likely no home needs Family Medical History Family Hx Cancer: Grandmother (maternal) (unspecified CA) Family Hx Diabetes: Grandmother (maternal) Visit type - Emergency Visit Emergency Visit: Yes ED Registration Date: 03/29/19 Care time: The patient presented to the Emergency Department on the above date and was hospitalized for further evaluation of their emergent condition. - New Patient This patient is new to me today: No - Critical Care Critical Care patient: No ATTENDING PHYSICIAN STATEMENT I saw and evaluated the patient. I reviewed the resident's note and discussed the case with the resident. I agree with the resident's findings and plan as documented. SUBJECTIVE: OBJECTIVE: ASSESSMENT AND PLAN:
[2019-03-29] MEDS ORDERED: LORazepam 1 MG TABLET PO PRN (22:12)
[2019-03-29] MEDS ORDERED: LORazepam 0.5 MG TABLET ONE (22:34)
[2019-03-29 22:54] LABS: ANION GAP 9 MMOL/L (8-16); BLOOD UREA NITROGEN 11.1 mg/dL (7-18); CHLORIDE 105 mmol/L (98-107); CO2 22 mmol/L (21-32); GLUCOSE,RANDOM 118 mg/dL (74-106); POTASSIUM 4.1 mmol/L (3.5-5.1); SODIUM 136 mmol/L (136-145)
[2019-03-29] MEDS: SODIUM CHLORIDE 1,000 ML IV SCH (23:13)
[2019-03-29 23:15] LABS: COCAINE, UR NEGATIVE ng/ml (CUTOFF=300); METHADONE, UR NEGATIVE ng/ml (CUTOFF=300); PHENCYCLIDINE,URINE NEGATIVE ng/ml (CUTOFF=25); URINE AMPHETAMINES NEGATIVE ng/ml (CUTOFF=500); URINE BARBITURATES NEGATIVE ng/ml (CUTOFF=200); URINE BENZODIAZEPINES NEGATIVE ng/ml (CUTOFF=200)
[2019-03-29 23:53] LABS: OPIATES, URI POSITIVE ng/ml (CUTOFF=300)
[2019-03-30] MEDS ORDERED: MELATONIN 5 MG TABLETS ONE (02:50)
[2019-03-30] MEDS: MELATONIN 5 MG TABLETS PO SCH ×2 (02:53→21:24)
[2019-03-30 06:25] LABS: HEMATOCRIT 36.5 % (35.4-49); HEMOGLOBIN 12.3 GM/dL (11.7-16.9); MCH 30.1 pg (25.7-33.7); MCHC 33.8 g/dl (32.0-35.9); MEAN CELL VOLUME 89.1 fl (80-96); MEAN PLT VOLUME 7.5 fl (7.5-11.1); PLATELET COUNT 268 K/MM3 (134-434); RBC 4.09 M/mm3 (4.00-5.60); RDW 14.2 % (11.9-15.9); WHITE BLOOD COUNT 4.8 K/mm3 (4.0-10.0)
[2019-03-30] MEDS ORDERED: ONDANSETRON 4 MG/2 ML VIAL IVPUSH PRN (06:29)
[2019-03-30 06:44] LABS: BLOOD UREA NITROGEN 11.7 mg/dL (7-18); CALCIUM 8.3 mg/dL (8.5-10.1); CREATININE 1.1 mg/dL (0.55-1.3); MAGNESIUM 1.9 mg/dL (1.8-2.4); PHOSPHOROUS 2.2 mg/dL (2.5-4.9); POTASSIUM 4.3 mmol/L (3.5-5.1)
[2019-03-30] MEDS ORDERED: NAPH,MB-DB/K PH,MBDB POWDER PACKET PO ONE (08:02)
[2019-03-30] MEDS: ENOXAPARIN NA (PORCINE) 40 MG/0.4 ML DISP.SYRIN SQ SCH (09:37)
[2019-03-30] MEDS: MULTIVITAMINS (DAILY MVI) TABLET (FP) PO SCH (09:37)
[2019-03-30] MEDS: FOLIC ACID 1 MG TABLET (FP) PO SCH (09:37)
[2019-03-30] MEDS: PANTOPRAZOLE 40 MG TABLET PO SCH (09:37)
[2019-03-30] MEDS: THIAMINE HCL 100 MG TABLET (FP) PO SCH (09:37)
[2019-03-30] MEDS ORDERED: PANTOPRAZOLE 20 MG TABLET PO SCH (10:00)
[2019-03-30 11:04] LABS: ALBUMIN 3.1 g/dl (3.4-5.0); BILIRUBIN,DIRECT 0.5 mg/dL (0.0-0.2); BILIRUBIN,TOTAL 1.7 mg/dL (0.2-1); TOT PROT 6.4 g/dl (6.4-8.2)
--- NOTE | 2019-03-30 11:15 | PN ---
Progress Note (short form) - Note Progress Note: Subjective: no abd pain now. no N/V. reports intermittent epigastric pain x few min, in past few days. n orelation to position, flatus, food intake. takes tylenol 1 g once a week . drinks about 1 bottle of alcohol on weekends. last use was 3 days ago. last month had heavier alcohol use. no dysuria , no diarrhea , no fever Objective: Vital Signs: Last Vital Signs Temp Pulse Resp BP Pulse Ox 97.5 F L 94 H 18 132/81 97 03/30/19 09:33 03/30/19 09:33 03/30/19 09:33 03/30/19 09:33 03/30/19 06:55 Laboratory Results - last 24 hr 03/29/19 03/29/19 03/29/19 14:00 14:00 14:00 WBC 6.6 RBC 5.23 Hgb 15.9 Hct 46.5 MCV 88.8 MCH 30.3 MCHC 34.2 RDW 14.2 Plt Count 360 MPV 7.9 Absolute Neuts (auto) 5.2 Neutrophils % 78.3 Lymphocytes % 13.6 D Monocytes % 7.1 Eosinophils % 0.2 D Basophils % 0.8 Nucleated RBC % 0 PT with INR INR PTT (Actin FS) Sodium 132 L Potassium 5.6 H Chloride 98 Carbon Dioxide 23 Anion Gap 11 BUN 15.5 Creatinine 1.0 Est GFR (CKD-EPI)AfAm 107.87 Est GFR (CKD-EPI)NonAf 93.07 Random Glucose 100 Calcium 9.3 Phosphorus Magnesium Total Bilirubin 2.2 H Direct Bilirubin AST 341 H ALT 178 H Alkaline Phosphatase 101 Troponin I Total Protein 8.2 Albumin 4.0 Lipase 292 Opiates Screen Methadone Screen Acetaminophen Barbiturate Screen Phencyclidine Screen Ur Amphetamines Screen MDMA (Ecstasy) Screen Benzodiazepines Screen Cocaine Screen U Marijuana (THC) Screen Alcohol, Quantitative Influenza A (Rapid) Negative Influenza B (Rapid) Negative Blood Type Antibody Screen 03/29/19 03/29/19 03/29/19 14:00 14:00 14:00 WBC RBC Hgb Hct MCV MCH MCHC RDW Plt Count MPV Absolute Neuts (auto) Neutrophils % Lymphocytes % Monocytes % Eosinophils % Basophils % Nucleated RBC % PT with INR 11.90 INR 1.01 PTT (Actin FS) 27.0 Sodium Potassium Chloride Carbon Dioxide Anion Gap BUN Creatinine Est GFR (CKD-EPI)AfAm Est GFR (CKD-EPI)NonAf Random Glucose Calcium Phosphorus Magnesium 1.4 L Total Bilirubin Direct Bilirubin AST ALT Alkaline Phosphatase Troponin I Total Protein Albumin Lipase Opiates Screen Methadone Screen Acetaminophen Barbiturate Screen Phencyclidine Screen Ur Amphetamines Screen MDMA (Ecstasy) Screen Benzodiazepines Screen Cocaine Screen U Marijuana (THC) Screen Alcohol, Quantitative Influenza A (Rapid) Influenza B (Rapid) Blood Type A POSITIVE Antibody Screen Negative 03/29/19 03/29/19 03/29/19 21:37 21:37 22:45 WBC RBC Hgb Hct MCV MCH MCHC RDW Plt Count MPV Absolute Neuts (auto) Neutrophils % Lymphocytes % Monocytes % Eosinophils % Basophils % Nucleated RBC % PT with INR INR PTT (Actin FS) Sodium 136 Potassium 4.1 Chloride 105 Carbon Dioxide 22 Anion Gap 9 BUN 11.1 Creatinine 1.0 Est GFR (CKD-EPI)AfAm 107.87 Est GFR (CKD-EPI)NonAf 93.07 Random Glucose 118 H Calcium 8.0 L Phosphorus Magnesium Total Bilirubin Direct Bilirubin AST ALT Alkaline Phosphatase Troponin I < 0.02 Total Protein Albumin Lipase Opiates Screen Positive A* Methadone Screen Negative Acetaminophen 2.1 Barbiturate Screen Negative Phencyclidine Screen Negative Ur Amphetamines Screen Negative MDMA (Ecstasy) Screen Negative Benzodiazepines Screen Negative Cocaine Screen Negative U Marijuana (THC) Screen Negative Alcohol, Quantitative < 3 Influenza A (Rapid) Influenza B (Rapid) Blood Type Antibody Screen 03/30/19 03/30/19 05:40 06:00 WBC 4.8 RBC 4.09 Hgb 12.3 Hct 36.5 D MCV 89.1 MCH 30.1 MCHC 33.8 RDW 14.2 Plt Count 268 D MPV 7.5 Absolute Neuts (auto) Neutrophils % Lymphocytes % Monocytes % Eosinophils % Basophils % Nucleated RBC % PT with INR INR PTT (Actin FS) Sodium 138 Potassium 4.3 Chloride 105 Carbon Dioxide 26 Anion Gap 6 L BUN 11.7 Creatinine 1.1 Est GFR (CKD-EPI)AfAm 96.13 Est GFR (CKD-EPI)NonAf 82.94 Random Glucose 109 H Calcium 8.3 L Phosphorus 2.2 L Magnesium 1.9 Total Bilirubin 1.7 H Direct Bilirubin 0.5 H AST 180 H ALT 125 H Alkaline Phosphatase 76 Troponin I Total Protein 6.4 Albumin 3.1 L Lipase Opiates Screen Methadone Screen Acetaminophen Barbiturate Screen Phencyclidine Screen Ur Amphetamines Screen MDMA (Ecstasy) Screen Benzodiazepines Screen Cocaine Screen U Marijuana (THC) Screen Alcohol, Quantitative Influenza A (Rapid) Influenza B (Rapid) Blood Type Antibody Screen Physical Exam: NAD ,awake ,alert. MMM, nl oropharynx. no JVD. anterior neck surgicla scar CV: RRR, no MRG Lungs: CATB Abd: soft, minimal discomfort in b/l lower quadrants and mild TTP in RUQ with neg Bowman's sign . mild tenderness in epigastric area. Ext : No edema or erythema Imaging: CT of abdomen /pelvis with no acute process. US of abd : pending Assessment/Plan: 43 y/o man with h/o alcohol abuse, anxiety, status post gastric sleeve 2018, s/ p C5/6 surgery who presented with abd painand was found to have LFTS abnormalities 1- Abd pain : not clear of etiology but could be due to gastritis, or IBS, or PUD. Nl Lipase, no abn on CT. doubt acute cholecystitis or biliary colic. do not suspect gastric sleeve complications LFTS abnormalities do not suggest obstruction . had transaminitis in past - cont regular diet - cont PPI - add carafate - follow Abd US read - get UA . - IVF till am 2- Transaminitis: no suggestion of obstruction . alcohol abuse is the likely etiology. on 03/04 ALT and AST were elevated. now bili elevation is new. - US done , follow results - DF 1.2 . - hepatitis panel pending - repeat in AM 3- h/o alcohol dependence - no signs of withdrawal. monitor . DVT PX: lovenox. Visit type - Emergency Visit Emergency Visit: Yes ED Registration Date: 03/29/19 Care time: The patient presented to the Emergency Department on the above date and was hospitalized for further evaluation of their emergent condition. - New Patient This patient is new to me today: Yes Date on this admission: 03/30/19 - Critical Care Critical Care patient: No
[2019-03-30 12:39] VITALS: BMI 28.0
[2019-03-30 14:07] LABS: PH,URINE 5.5 (5.0-8.0); URINE APPEARANCE CLEAR; URINE BILIRUBIN NEGATIVE (NEGATIVE); URINE COLOR YELLOW; URINE GLUCOSE (UA) NEGATIVE (NEGATIVE); URINE KETONE NEGATIVE (NEGATIVE); URINE LEUK ESTERASE NEGATIVE (NEGATIVE); URINE NITRITE NEGATIVE (NEGATIVE); URINE PROTEIN NEGATIVE (NEGATIVE)
[2019-03-30] MEDS ORDERED: PT OWN MED DRAWER 7, Y5N ONE ×3 (15:24→21:20)
[2019-03-30] MEDS: SUCRALFATE 1 GM TABLET (FP) PO SCH ×3 (15:35→21:24)
[2019-03-30] MEDS: SODIUM CHLORIDE 1,000 ML IV SCH (16:16)
[2019-03-31] MEDS: SODIUM CHLORIDE 1,000 ML IV SCH ×2 (02:31→02:32)
[2019-03-31 10:20] LABS: BILIRUBIN,TOTAL 1.5 mg/dL (0.2-1); BLOOD UREA NITROGEN 10.3 mg/dL (7-18); CALCIUM 8.5 mg/dL (8.5-10.1); POTASSIUM 3.9 mmol/L (3.5-5.1); TOT PROT 6.6 g/dl (6.4-8.2)
[2019-03-31] MEDS: ENOXAPARIN NA (PORCINE) 40 MG/0.4 ML DISP.SYRIN SQ SCH (10:41)
[2019-03-31] MEDS: FOLIC ACID 1 MG TABLET (FP) PO SCH (10:41)
[2019-03-31] MEDS: PANTOPRAZOLE 40 MG TABLET PO SCH (10:41)
[2019-03-31] MEDS: SUCRALFATE 1 GM TABLET (FP) PO SCH ×3 (10:41→17:29)
[2019-03-31] MEDS: MULTIVITAMINS (DAILY MVI) TABLET (FP) PO SCH (10:42)
[2019-03-31] MEDS: THIAMINE HCL 100 MG TABLET (FP) PO SCH (10:42)
[2019-03-31 14:45] VITALS: BP 120/80; PULSE 95; TEMP 98.4
--- NOTE | 2019-03-31 15:15 | PN ---
Teaching Attending Note Name of Resident: Jany Obando ATTENDING PHYSICIAN STATEMENT I saw and evaluated the patient. I reviewed the resident's note and discussed the case with the resident. I agree with the resident's findings and plan as documented. SUBJECTIVE: no fever or chills. no Abd pain today . no N/V . tolerated diet. OBJECTIVE: NAD, awake ,alert. MMM, anterior neck surgical scar CV: RRR, no MRG Lungs: CATB Abd: soft, NT, Nd, NL BS . Ext : No edema or erythema Assessment/Plan: 43 y/o man with h/o alcohol abuse, anxiety, status post gastric sleeve 2018, s/ p C5/6 surgery who presented with abd painand was found to have LFTS abnormalities 1- Abd pain : possible gastritis or PUd from alcohol use. US neg . CT unremarkable - advised to stop ETOH - dc on PPI x 2 weeks - f/u with GI and his surgeon 2- Transaminitis: no suggestion of obstruction. alcohol abuse is the likely etiology. LFTs improved - hepatitis panel pending dc home to folow up with GI fro further w/u and for follow up on hepatitis serology.
--- NOTE | 2019-03-31 16:39 | DS ---
Physical Exam: SUBJECTIVE: Patient seen and examined at bedside. Pt has no acute complaints OBJECTIVE: Vital Signs Period Temp Pulse Resp BP Sys/Wayne Pulse Ox Last 24 Hr 97.9 F-98.4 F 79-102 18-20 120-142/80-93 99 PHYSICAL EXAM GENERAL: The patient is awake, alert, and fully oriented, in no acute distress. HEAD: Normal with no signs of trauma. EYES: PERRL, extraocular movements intact ENT: moist mucous membranes. LUNGS: Breath sounds equal, clear to auscultation bilaterally, no wheezes, no crackles, no accessory muscle use. HEART: Regular rate and rhythm, S1, S2 without murmur, rub or gallop. ABDOMEN: Soft, nontender, nondistended, normoactive bowel sounds, no guarding, no rebound EXTREMITIES: 2+ pulses, warm, well-perfused, no edema. NEUROLOGICAL: Cranial nerves II through XII grossly intact. Normal speech PSYCH: Normal mood, normal affect. SKIN: Warm, dry, normal turgor, no rashes or lesions noted. Laboratory Results 03/31/19 08:43 Sodium 138 Potassium 3.9 Chloride 103 Carbon Dioxide 29 Anion Gap 6 L BUN 10.3 Creatinine 1.0 Est GFR (CKD-EPI)AfAm 107.87 Est GFR (CKD-EPI)NonAf 93.07 Random Glucose 137 H Calcium 8.5 Total Bilirubin 1.5 H AST 94 H ALT 94 H Alkaline Phosphatase 73 Total Protein 6.6 Albumin 3.0 L HOSPITAL COURSE: Date of Admission:03/29/19 43 yo M Hx of Alcohol abuse, anxiety, Cervical sx who presented to [facility] with epigastric pain and found to have elevated LFTs. lipase was normal. CT abdomen pelvis was normal, abdominal u/s showed neg for stones or duct dilation. Pt was counselled to stop alcohol use. pt was d/c with instructions to f/u with GI for EGD and d/c with PPI for 2 weeks. pt should follow up with PMD within one week to review improvement. The pt's LFTs have improved and likely 2/2 alcohol use. Hep panel is pending. Date of Discharge: 03/31/19 Minutes to complete discharge: 36 Discharge Summary Problems reviewed: Yes Reason For Visit: ALCOHOL WITHDRAWAL SYNDROME Current Active Problems Abdominal pain (Acute) Transaminitis (Acute) Condition: Improved - Instructions Diet, Activity, Other Instructions: You came into the hospital for abdominal pain. While in the hospital, you had an abdominal ultrasound, and a CT of your abdomen which was negative. Your symptoms resolved. Your blood tests shows that your liver enzymes are elevated. You should follow up with your primary physician in 1 week to monitor your improvement. If you do not have a primary physician, you can follow up at the [facility]. You should also follow up with a valet cashier to evaluate you for an endoscopy and also your liver . Referral to Dr. Brown is given You should continue taking Protonix 40 mg daily for 2 weeks You should continue your additional home medications as prescribed. If your symptoms persist, or worsen, or if you develop any alarming symptoms, please return to the ED or call 911. Avoid alcohol use. yo need blood work in 1 week 9 LFTs, CBC, BMP) hepatitis serology is still pending , this needs to be followed up by your primary doctor or by GI please follow up with your surgeon ( gastric sleeve ) Referrals: [facility] [Provider Group] - 1 Week Herman Brown DO [Staff Physician] - 1 Week Disposition: HOME - Home Medications Comprehensive Discharge Medication List: Ambulatory Orders Pantoprazole Sodium [Protonix] 40 mg PO DAILY #14 tablet. 03/31/19 This patient is new to me today: Yes Date on this admission: 03/31/19 Emergency Visit: No Critical Care patient: No - Discharge Referral Referred to [facility] No ATTENDING PHYSICIAN STATEMENT I saw and evaluated the patient. I reviewed the resident's note and discussed the case with the resident. I agree with the resident's findings and plan as documented. SUBJECTIVE: OBJECTIVE: ASSESSMENT AND PLAN:
[2019-04-02 10:11] LABS: HEP B CORE AB, TOT Negative (Negative)
== END 2019-03-31 19:05 | disposition home or self-care (01) | DRG 241 ==
LOC: JER 12:55 → JERBED 16:12 → J8W 03-30 08:44
PROVIDERS: ADMIT Internal Medicine; ATTEND Internal Medicine
DX: K29.20 Alcoholic gastritis without bleeding (principal); K21.9 Gastro-esophageal reflux disease without esophagitis; R00.0 Tachycardia, unspecified; F10.20 Alcohol dependence, uncomplicated; F41.9 Anxiety disorder, unspecified; R74.0 Nonspecific elevation of levels of transaminase and lactic acid dehydrogenase [LDH]; Z98.84 Bariatric surgery status; K76.0 Fatty (change of) liver, not elsewhere classified; E87.5 Hyperkalemia
CPT/HCPCS: 36415; 71045-TC-FY; 74177-TC; 76705-TC; 80048; 80053; 80076; 80307; 81003; 83690; 83735; 84100; 84484; 85025; 85027; 85610; 85730; 86704; 86706; 86707; 86708; 86709; 86850; 86900; 86901; 87340; 87804; 93005; 93010; 99284-25; J0131; J7030; Q9967

== ENCOUNTER 2019-06-14 15:01 | Emergency (ER) | payer OTHER ==
[2019-06-14 15:08] VITALS: BP 128/93; PULSE 91; TEMP 99; BMI 29.5
--- NOTE | 2019-06-14 15:19 | PDOC ---
History of Present Illness - General Chief Complaint: Vomiting Blood Stated Complaint: VOMITING BLOOD Time Seen by Provider: 06/14/19 15:18 - History of Present Illness Initial Comments: 06/14/19 15:42 44 y/o M hx of laprascopic sleeve gastrectomy (2014 [facility]), alcohol abuse, admission 2 months ago for similar complaint presents to the ED with 2 days of vomiting and hematemesis (not erich blood, vomit streaked with blood). 06/14/19 15:49 ROS: GENERAL/CONSTITUTIONAL: No fever or chills. No weakness. HEAD, EYES, EARS, NOSE AND THROAT: No change in vision. No ear pain or discharge. No sore throat. CARDIOVASCULAR: No chest pain or shortness of breath RESPIRATORY: No cough, wheezing, or hemoptysis. GASTROINTESTINAL: +nausea,+vomiting no diarrhea or constipation. GENITOURINARY: No dysuria, frequency, or change in urination. MUSCULOSKELETAL: No joint or muscle swelling or pain. No neck or back pain. SKIN: No rash NEUROLOGIC: No headache, vertigo, loss of consciousness, or change in strength/sensation. ENDOCRINE: No increased thirst. No abnormal weight change HEMATOLOGIC/LYMPHATIC: No anemia, easy bleeding, or history of blood clots. ALLERGIC/IMMUNOLOGIC: No hives or skin allergy. PE: GENERAL: Awake, alert, and fully oriented, in no acute distress HEAD: No signs of trauma, normocephalic, atraumatic EYES: PERRLA, EOMI, sclera anicteric, conjunctiva clear ENT: Auricles normal inspection, hearing grossly normal, nares patent, oropharynx clear without exudates. Moist mucosa NECK: Normal ROM, supple, no lymphadenopathy, JVD, or masses LUNGS: No distress, speaks full sentences, clear to auscultation bilaterally HEART: Regular rate and rhythm, normal S1 and S2, no murmurs, rubs or gallops, peripheral pulses normal and equal bilaterally. ABDOMEN: soft, epigastric and RUQ tenderness. no CVA tenderness of flank pain EXTREMITIES : Normal inspection, Normal range of motion, no edema. No clubbing or cyanosis NEUROLOGICAL: Cranial nerves II through XII grossly intact. Normal speech, n ormal gait, no focal sensorimotor deficits SKIN: Warm, Dry, normal turgor, no rashes or lesions noted 06/14/19 16:18 06/14/19 16:21 Past History - Past Medical History Allergies/Adverse Reactions: Allergies Allergy/AdvReac Type Severity Reaction Status Date / Time pollen extracts Allergy Verified 03/29/19 13:10 Home Medications: Ambulatory Orders Pantoprazole Sodium [Protonix] 40 mg PO DAILY #14 tablet. 03/31/19 Anemia: No Asthma: No Cancer: No Cardiac Disorders: No CVA: No COPD: No CHF: No Dementia: No Diabetes: No GI Disorders: No Disorders: No HTN: Yes Hypercholesterolemia: Yes Liver Disease: No Seizures: No Thyroid Disease: No - Surgical History Abdominal Surgery: Yes (gastric sleeve 2014) Appendectomy: No Cardiac Surgery: No Cholecystectomy: No Lung Surgery: No Neurologic Surgery: No Orthopedic Surgery: Yes (Cervical surgery 2018) - Immunization History Td Vaccination: No TDAP Vaccination: No Immunization Up to Date: Yes - Psycho Social/Smoking Cessation Hx Smoking Status: No Smoking History: Never smoked Years of Tobacco Use: 0 Have you smoked in the past 12 months: No Number of Cigarettes Smoked Daily: 0 If you are a former smoker, when did you quit?: 25 YEARS AGO Cigars Per Day: 0 Information on smoking cessation initiated: No Hx Alcohol Use: No Drug/Substance Use Hx: No Substance Use Type: Alcohol Hx Substance Use Treatment: No *Physical Exam - Vital Signs Last Vital Signs Temp Pulse Resp BP Pulse Ox 99.0 F 91 H 18 128/93 97 06/14/19 15:05 06/14/19 15:05 06/14/19 15:05 06/14/19 15:05 06/14/19 15:05 ED Treatment Course - LABORATORY CBC & Chemistry Diagram: 06/14/19 15:40 06/14/19 15:40 Medical Decision Making - Medical Decision Making 06/14/19 16:22 44 y/o M hx of laprascopic sleeve gastrectomy (2014 [facility]), alcohol abuse, admission 2 months ago for similar complaint presents to the ED with 2 days of vomiting and hematemesis ddx: pancreatitis, hepatitis, sbo, cholelithiasis, choloecystitis workup; cbc, cmp, lipase, ekg, cxr, abdomen and pelvis with oral and iv contrast. 06/14/19 16:43 Meds: morphine EKG: NSR, normal EKG no st elevations pt states " i do not feel comfortable here i want to leave". risks explained including and disability pt acknowledges these risks and would still like to leave. 06/14/19 16:45 Discharge - Discharge Information Problems reviewed: Yes Clinical Impression/Diagnosis: Abdominal pain Condition: Stable Disposition: AGAINST MEDICAL ADVICE - Follow up/Referral Referrals: Isidra Falk MD [Primary Care Provider] - - Patient Discharge Instructions - Post Discharge Activity
[2019-06-14] MEDS ORDERED: FAMOTIDINE 20 MG/50 ML IVPB 20 MG/50 ML MG IVPB ONE (15:53)
[2019-06-14] MEDS ORDERED: morphine CARPU-JECT 4 MG/1 ML DISP.SYRIN IVPUSH ONE (15:53)
[2019-06-14] MEDS ORDERED: ONDANSETRON 4 MG/2 ML VIAL IVPUSH ONE (15:55)
[2019-06-14] MEDS ORDERED: morphine SULFATE 4 MG/ML VIAL ONE (16:02)
[2019-06-14] MEDS ORDERED: ONDANSETRON 4 MG/2 ML VIAL ONE (16:02)
--- NOTE | 2019-06-14 16:14 | PDOC ---
Documentation entered by Fredy Gage SCRIBE, acting as scribe for Angle Berg MD. Angle Berg MD: This documentation has been prepared by the Merari joseph Angel, SCRIBE, under my direction and personally reviewed by me in its entirety. I confirm that the documentation accurately reflects all work, treatment, procedures, and medical decision making performed by me. Attending Attestation - Resident Resident Name: Travis Ca - ED Attending Attestation I have performed the following: I have examined & evaluated the patient, The case was reviewed & discussed with the resident, I agree w/resident's findings & plan, Exceptions are as noted - HPI HPI: 06/14/19 16:09 The patient is a 44 year old male with a significant past medical history of alcohol abuse, anxiety, status post gastric sleeve 2015 who presents to the ED with 4 episodes of hematemesis since yesterday. Social History: Patient is a current alcohol abuser. - Physicial Exam PE: 06/14/19 16:12 NAD, well appearing soft, minimal tenderness periumbilical, no guarding, no rebound. A&O x 3 - Medical Decision Making 06/14/19 16:13 44yoM hx of etoh abuse, sleeve gastrectomy presnets w/ vomiting and single episodes of scant hematemesis. - labs - ppi - CTAP for abd tendrenss in setting of gastrectomy - Dispo per results. monitor for etoh w/d. Discharge - Discharge Information Problems reviewed: Yes Clinical Impression/Diagnosis: Abdominal pain Condition: Stable - Follow up/Referral Referrals: Isidra Falk MD [Primary Care Provider] - - Patient Discharge Instructions - Post Discharge Activity
[2019-06-14 16:26] LABS: BASO % 0.8 % (0-2.0); EOS % 0.1 % (0-4.5); HEMATOCRIT 44.6 % (35.4-49); HEMOGLOBIN 14.6 GM/dL (11.7-16.9); LYMPH % 23.8 % (8-40); MCH 28.7 pg (25.7-33.7); MCHC 32.7 g/dl (32.0-35.9); MEAN CELL VOLUME 87.7 fl (80-96); MEAN PLT VOLUME 7.5 fl (7.5-11.1); NEUT % 69.3 % (42.8-82.8); PLATELET COUNT 386 K/MM3 (134-434); RBC 5.08 M/mm3 (4.00-5.60); WHITE BLOOD COUNT 6.8 K/mm3 (4.0-10.0)
[2019-06-14 16:34] LABS: INR 1.06 (0.83-1.09); PROTHROMBIN TIME (PATIENT) 12.5 SEC (9.7-13.0)
[2019-06-14 16:37] LABS: ACTIVATED PTT 31.9 SECONDS (25.2-36.5)
[2019-06-14 16:46] LABS: ALK PHOS 53 U/L (45-117); ANION GAP 8 MMOL/L (8-16); BILIRUBIN,TOTAL 0.4 mg/dL (0.2-1); BLOOD UREA NITROGEN 11.9 mg/dL (7-18); CALCIUM 8.6 mg/dL (8.5-10.1); CHLORIDE 106 mmol/L (98-107); CO2 24 mmol/L (21-32); CREATININE 0.9 mg/dL (0.55-1.3); GLUCOSE,RANDOM 115 mg/dL (74-106); LIPASE 154 U/L (73-393); POTASSIUM 4.4 mmol/L (3.5-5.1); SGOT/AST 33 U/L (15-37); SGPT/ALT 37 U/L (13-61); SODIUM 137 mmol/L (136-145)
--- NOTE | 2019-06-16 14:54 | EKG ---
Test Reason : Blood Pressure : / mmHG Vent. Rate : 085 BPM Atrial Rate : 085 BPM P-R Int : 148 ms QRS Dur : 082 ms QT Int : 356 ms P-R-T Axes : 050 039 023 degrees QTc Int : 423 ms NORMAL SINUS RHYTHM NORMAL ECG WHEN COMPARED WITH ECG OF 29-MAR-2019 13:34, VENT. RATE HAS DECREASED BY 47 BPM Confirmed by RANDY JOSEPH MD ([id number]) on 06/16/2019 2:53:30 PM Referred By: Confirmed By:RANDY JOSEPH MD
== END 2019-06-14 16:48 | disposition left against medical advice (07) ==
LOC: JER 15:01
PROC: 3E033GC Introduction of Other Therapeutic Substance into Peripheral Vein, Percutaneous Approach (ICD-10-PCS; principal; 2019-06-14)
DX: R10.84 Generalized abdominal pain (principal)
CPT/HCPCS: 36415; 80053; 82550; 83690; 84484; 85025; 85610; 85730; 86850; 86900; 86901; 93005; 93010; 96365; 96375; 99284-25

== ENCOUNTER 2019-08-14 19:29 | Emergency (ER) | payer OTHER ==
[2019-08-14] MEDS ORDERED: SODIUM CHLORIDE 1,000 ML IV STA (19:33)
[2019-08-14] MEDS ORDERED: ONDANSETRON 4 MG/2 ML VIAL IVPUSH ONE (19:34)
[2019-08-14 19:47] VITALS: BP 143/93; TEMP 98.9; BMI 28.7
[2019-08-14] MEDS ORDERED: ACETAMINOPHEN 1000 MG/100 ML VIAL (NON FORMULARY) IVPB ONE (20:34)
[2019-08-14] MEDS ORDERED: FAMOTIDINE 20 MG/50 ML IVPB 20 MG/50 ML MG IVPB ONE (20:34)
[2019-08-14] MEDS ORDERED: ACETAMINOPHEN INJECTION 100 ML IVPB ONE (20:38)
[2019-08-14 20:44] LABS: BASO % 0.8 % (0-2.0); EOS % 0.3 % (0-4.5); HEMATOCRIT 46.6 % (35.4-49); HEMOGLOBIN 15.7 GM/dL (11.7-16.9); LYMPH % 35.1 % (8-40); MCH 28.5 pg (25.7-33.7); MCHC 33.6 g/dl (32.0-35.9); MEAN CELL VOLUME 84.8 fl (80-96); MEAN PLT VOLUME 7.7 fl (7.5-11.1); MONO % 8.6 % (3.8-10.2); NEUT % 55.2 % (42.8-82.8); PLATELET COUNT 306 K/MM3 (134-434); RDW 14.2 % (11.9-15.9); WHITE BLOOD COUNT 7.8 K/mm3 (4.0-10.0)
[2019-08-14 21:17] LABS: ALBUMIN 4.1 g/dl (3.4-5.0); BILIRUBIN,TOTAL 0.9 mg/dL (0.2-1); BLOOD UREA NITROGEN 18.7 mg/dL (7-18); CALCIUM 8.4 mg/dL (8.5-10.1); POTASSIUM 4.4 mmol/L (3.5-5.1); TOT PROT 8.1 g/dl (6.4-8.2)
[2019-08-14] MEDS ORDERED: MAG HYDROX/AL HYDROX/SIMETH 30 ML UNIT-DOSE CUP PO ONE (23:14)
[2019-08-14] MEDS ORDERED: LIDOCAINE VISCOUS 2% ORAL/TOP 20 ML UNIT-DOSE CUP MM ONE (23:20)
[2019-08-14] MEDS ORDERED: MAG HYDROX/AL HYDROX/SIMETH 30 ML UNIT-DOSE CUP ONE (23:21)
[2019-08-14] MEDS ORDERED: LIDOCAINE VISCOUS 2% ORAL/TOP 20 ML UNIT-DOSE CUP ONE (23:23)
[2019-08-15] MEDS ORDERED: LACTATED RINGERS SOLUTION 1000 ML INFUS.BAG IV ONE (00:29)
[2019-08-15 00:40] LABS: URINE APPEARANCE CLEAR; URINE BILIRUBIN NEGATIVE (NEGATIVE); URINE COLOR YELLOW; URINE GLUCOSE (UA) NEGATIVE (NEGATIVE); URINE KETONE TRACE (NEGATIVE); URINE LEUK ESTERASE NEGATIVE (NEGATIVE); URINE NITRITE NEGATIVE (NEGATIVE); URINE PROTEIN NEGATIVE (NEGATIVE); URINE UROBILINOGEN 0.2 mg/dL (0.2-1.0)
[2019-08-15 02:01] VITALS: PULSE 80
== END 2019-08-15 02:06 | disposition home or self-care (01) ==
LOC: JER 19:29
PROC: 3E03329 Introduction of Other Anti-infective into Peripheral Vein, Percutaneous Approach (ICD-10-PCS; principal; 2019-08-14)
PROC: 3E033GC Introduction of Other Therapeutic Substance into Peripheral Vein, Percutaneous Approach (ICD-10-PCS; 2019-08-14)
PROC: 3E033GC Introduction of Other Therapeutic Substance into Peripheral Vein, Percutaneous Approach (ICD-10-PCS; 2019-08-14)
PROC: 3E0337Z Introduction of Electrolytic and Water Balance Substance into Peripheral Vein, Percutaneous Approach (ICD-10-PCS; 2019-08-14)
DX: R10.9 Unspecified abdominal pain (principal); K76.0 Fatty (change of) liver, not elsewhere classified; F10.920 Alcohol use, unspecified with intoxication, uncomplicated; K29.20 Alcoholic gastritis without bleeding
CPT/HCPCS: 36415; 70450-TC; 71045-TC-FY; 72125-TC; 74177-TC; 76705-TC; 80053; 81003; 83690; 85025; 87086; 93005; 93010; 99285-25; J0131; Q9967